=== PATIENT | female | born 1970 | race Caucasian/White ===

== ENCOUNTER 2022-04-26 07:24 | Day surgery (SDC) | payer BC ==
[~2022-04-26] VITALS: Ht 157.5 cm; Wt 52.6 kg
[~2022-04-26 07:24] MED LIST: CALCIUM500 MG PO; DAILY VALUE1 EACH PO; DELESTROGE10 MG/1 ML IM; LEVOTHYROXINE88 MC1 PO; LINSEED OIL1 ML MISC
--- NOTE | 2022-04-26 09:12 | NUR ---
04/26/22 0912 Ana Garsia 0909- PT ARRIVES TO PACU REACTIVE TO VERBAL STIMULI. PT UPDATED THAT HER PROCEDURE IS OVER. PT FALLS INSTANTLY BACK TO SLEEP WHEN NOT BEING STIMULATED. RESP EVEN AND UNLABORED. OXYGEN SAT HIGH 90'S TO 100% ON 3L VIA NC.
--- NOTE | 2022-04-26 10:13 | NUR ---
PT ALERT, ORIENTED AND SUPPORTED BY HER NIHARIKA. PT JIS HERE FOR HER FIRST SCOPE, ALL QUESTIONS ASKED ANSWERED. PT SEEMS A LITTLE ANXIOUS, BUT CONTROLLED. NIHARIKA VERY SUPPORTIVE, WILL REMAIN FOR DC. PT REQUESTED PRAYER WILL FOLLOW NEEDED
--- NOTE | 2022-04-28 09:48 | OR ---
[facility] [address], [place] [address] Signed DATE OF OPERATION: 04/26/2022 SURGEON: Jose Keller MD PREOPERATIVE DIAGNOSES: 1. Colon screening. 2. Family history of colon cancer (grandmother). POSTOPERATIVE DIAGNOSIS: Two small polyps, left transverse and rectum (diminutive). PROCEDURE: Total colonoscopy to cecum with cold morcellation polypectomy x2. ANESTHESIA: Intravenous sedation; fentanyl 150 mcg and Versed 5 mg. INDICATION: This 51-year-old white woman is a patient Dr. Rodriguez and was referred for colon screening. She is asymptomatic. She does have family history of colon cancer in a grandmother. Her grandmother was at an older age when this occurred. She is admitted to undergo screening colonoscopy. She understands the risks of bleeding, infection, and perforation. FINDINGS: The prep was good. Complete colonoscopy was undertaken to the cecum without question. She had two very small polyps, one in the left transverse colon, the other in the rectum, both excised with cold morcellation technique. The remaining colon was normal. PROCEDURE: The patient was brought to the endoscopy suite and placed in the lateral decubitus position, given intravenous sedation to the point of slurred speech and nystagmus. Full cardiopulmonary monitoring was maintained. Digital rectal examination was normal. An Olympus video colonoscope was passed in the rectum and manipulated throughout the colon ultimately intubating the cecum itself. The ileocecal valve and appendiceal orifice were normal. The scope was withdrawn from that point and examination throughout was normal until the left transverse colon where a very small polyp was noted. It is unclear if this was adenomatous. It was excised with cold morcellation technique. The scope was further withdrawn and there were no other findings until the rectum where a Electronically Signed By: JOSE KELLER MD 04/28/22 0948 PATIENT NAME: KAMILA HEAD OPERATIVE REPORT DATE OF : 72 REPORT #: [id number] PHYSICIAN: JOSE KELLER MD PCP: ALEJANDRA RODRIGUEZ MD REPORT IS CONFIDENTIAL AND NOT TO BE RELEASED WITHOUT AUTHORIZATION [facility] [address], [place] [address] Signed similar such polyp was noted, this was excised with cold morcellation technique as well. Retroflexed view was otherwise normal. Scope was removed and the patient was taken to the recovery room in good condition. CONCLUDING DIAGNOSIS: Two very small polyps, possibly adenomatous. PLAN: We would recommend repeat colonoscopy in 5 years if polyps are adenomatous. If not, flexibility to repeat in 5 to 10 years based on family history. She will return to the ongoing care of Dr. Rodriguez. MD TERELL Padilla/MODL /[id number] cc: Dr. Rodriguez Copies: ~ Electronically Signed By: JOSE KELLER MD 04/28/22 0948 PATIENT NAME: KAMILA HEAD OPERATIVE REPORT DATE OF : 72 REPORT #: [id number] PHYSICIAN: JOSE KELLER MD PCP: ALEJANDRA RODRIGUEZ MD REPORT IS CONFIDENTIAL AND NOT TO BE RELEASED WITHOUT AUTHORIZATION
== END 2022-04-26 09:57 | disposition home or self-care (01) ==
LOC: DS 07:24 → OPS 07:24
PROVIDERS: ATTEND Surgery
PROC: 0DBL8ZX Excision of Transverse Colon, Via Natural or Artificial Opening Endoscopic, Diagnostic (ICD-10-PCS; 2022-04-26)
PROC: 0DBP8ZX Excision of Rectum, Via Natural or Artificial Opening Endoscopic, Diagnostic (ICD-10-PCS; principal; 2022-04-26 08:30)
DX: Z12.11 Encounter for screening for malignant neoplasm of colon (principal); Z80.0 Family history of malignant neoplasm of digestive organs; K63.5 Polyp of colon; K62.1 Rectal polyp; E03.9 Hypothyroidism, unspecified; Z88.5 Allergy status to narcotic agent
CPT/HCPCS: 84703; 99153; G0500; J2250; J3010; J7121